=== PATIENT | male | born 1945 | race Hispanic/Latino ===

== ENCOUNTER 2022-10-25 09:29 | Day surgery (SDC) | payer MEDICARE, OTHER ==
[2022-10-25] MEDS: Ringers Lactate 1,000 ML IV ONE ×2 (09:45→10:27)
[2022-10-25] MEDS: PHENYLEPHRINE 10% OPTH 5ML ONE ×3 (10:03→10:13)
[2022-10-25] MEDS ORDERED: TETRACAINE HCL 0.5% 4ML OPTH ONE (10:05)
[2022-10-25] MEDS ORDERED: CYCLOPENTOLATE 1% OPTH 2 ML ONE (10:05)
[2022-10-25] MEDS ORDERED: LIDOCAINE HCL/PF 3.5% OPTH GEL ONE (10:05)
[2022-10-25] MEDS ORDERED: BSS OPTHALMIC SOL 15 ML OPTH ONE (10:07)
[2022-10-25] MEDS ORDERED: MIDAZOLAM HCL 2 MG/2 ML INJ ONE (10:07)
[2022-10-25] MEDS ORDERED: FENTANYL CITR 100 MCG/2 ML ONE (10:07)
[2022-10-25] MEDS ORDERED: BALANCED SALT IRRIG PLAIN 500 ML IRR ONE (10:08)
[2022-10-25] MEDS ORDERED: LIDOCAINE 1% MPF 2 ML AMPULE ONE (10:08)
[2022-10-25] MEDS ORDERED: CYCLOPENTOLATE 1% OPTH 2 ML OPTH ONE ×2 (10:08→10:13)
[2022-10-25] MEDS ORDERED: POVIDONE-IODINE 5% EYE DROPS ONE (10:08)
[2022-10-25] MEDS ORDERED: ONDANSETRON 4 MG/2 ML VIAL ONE (10:08)
[2022-10-25] MEDS ORDERED: MOXIFLOXACIN HCL 10 DROPS/ML **OR USE OPTH ONE ×2 (10:09→11:18)
[2022-10-25] MEDS ORDERED: DUOVISC 1 KIT OPTH ONE (10:09)
[2022-10-25] MEDS ORDERED: LIDOCAINE HCL/PF 3.5% OPTH GEL OPTH ONE (10:15)
[2022-10-25] MEDS: EPINEPHRINE/PF 1 MG/ML AMP ONE ×3 (10:50→10:55)
[2022-10-25 11:48] VITALS: BP 142/92; TEMP 97.6; O2SAT 98
--- NOTE | 2022-10-25 20:28 | OP ---
Date of Procedure: 10/25/2022 Surgeon: Connie Hedrick MD Preoperative Diagnoses: Nuclear sclerotic cataract, OS (left eye) and regular astigmatism, OS (left eye) Operation Performed: Phacoemulsification with Toric intraocular lens, left eye. Anesthesia: Aravind Preciado CRNA and Nadir Raines MD. Per cataract surgery. Complications: None. Description Of Procedure: In day surgery, Akten gel was placed OS. In the operating room the patient was prepped and draped in the usual sterile fashion for ophthalmic surgery. A lid speculum was placed in the OS. One paracentesis sites was made inferiorly in the limbal cornea. 1% preservative free lidocaine and a 1:4 mixture of epineprhine (1:1000) to BSS was placed in the anterior chamber. Viscoat was placed in the anterior chamber. A keratome was used to enter the anterior chamber. A 360 degree capsulotomy was performed with utrata forceps The lens was hydrodissected with BSS and rotated freely. The lens was removed with a chop technique. Phaco 9.24 CDE was used to remove the lens. Residual cortex was removed with the irrigation and aspiration. Provisc was placed in the capsular bag. A JDR838 +22.0 lens was placed in the capsular bag, at 165 degrees, without complications. Irrigation and aspiration was used to remove residual viscoelastic. The paracentesis site and wound were hydrated with BSS. The wound and paracentesis sites were inspected and found to be watertight. Vigamox 0.07 cc was placed intracamerally at the end of the procedure. The eye was patched with a clear plastic shield. The patient was returned to day surgery in good condition. Comments: Discharge Instructions: Mr. Garcia is discharged home in good condition to follow up with Dr. Hedrick in the morning. REJI/LATIA Voice ID: [id number] Report ID: [id number]
== END 2022-10-25 11:45 | disposition home or self-care (01) ==
LOC: OR 09:29
PROVIDERS: ADMIT Ophthalmology Retina Specialist; ATTEND Ophthalmology Retina Specialist
PROC: 08RK3JZ Replacement of Left Lens with Synthetic Substitute, Percutaneous Approach (ICD-10-PCS; principal; 2022-10-25 10:30)
DX: H25.12 Age-related nuclear cataract, left eye (principal); H52.222 Regular astigmatism, left eye
CPT/HCPCS: 66984; J0171; J2250; J3010; J2405; J7120